=== PATIENT | male | born 1945 | race Caucasian/White ===

== ENCOUNTER → 2017-01-31 | Outpatient (REF) | payer MEDICARE | LOC: M LAB REF 13:51 | PROVIDERS: ATTEND Internal Medicine Medical Oncology | DX: E83.119 Hemochromatosis, unspecified (principal) ==

== ENCOUNTER → 2017-04-18 | Outpatient (REF) | payer MEDICARE ==
[2017-04-18 13:50] LABS: PERCENT SATURATION 69.5 % (19.7-50.0)
== END ==
LOC: M LAB REF 12:50
PROVIDERS: ATTEND Internal Medicine Medical Oncology
DX: E83.119 Hemochromatosis, unspecified (principal)

== ENCOUNTER → 2017-08-08 | Outpatient (CLI) | payer MEDICARE | LOC: M RAD 07:25 | DX: R16.1 Splenomegaly, not elsewhere classified (principal); D18.03 Hemangioma of intra-abdominal structures; N26.1 Atrophy of kidney (terminal); N28.1 Cyst of kidney, acquired; I31.3 Pericardial effusion (noninflammatory) | CPT/HCPCS: 76700 ==

== ENCOUNTER → 2017-08-15 | Outpatient (REF) | payer MEDICARE ==
[2017-08-15 14:57] LABS: FERRITIN 380 NG/ML (26-388); IRON (FE) 198 UG/DL (65-175); PERCENT SATURATION 93.4 % (19.7-50.0); TOTAL IRON BINDING CAPACITY 212 UG/DL (250-450)
== END ==
LOC: M LAB REF 13:31
DX: E83.119 Hemochromatosis, unspecified (principal)
CPT/HCPCS: 83550

== ENCOUNTER → 2017-11-14 | Outpatient (REF) | payer MEDICARE ==
[2017-11-14 15:07] LABS: FERRITIN 268 NG/ML (26-388); IRON (FE) 137 UG/DL (65-175); PERCENT SATURATION 65.9 % (19.7-50.0); TOTAL IRON BINDING CAPACITY 208 UG/DL (250-450)
== END ==
LOC: M ONCM 10:35
DX: E83.119 Hemochromatosis, unspecified (principal)
CPT/HCPCS: 83550

== ENCOUNTER → 2018-02-27 | Outpatient (REF) | payer MEDICARE ==
[2018-02-27 14:23] LABS: FERRITIN 222 NG/ML (26-388); IRON (FE) 90 UG/DL (65-175); PERCENT SATURATION 54.9 % (19.7-50.0); TOTAL IRON BINDING CAPACITY 164 UG/DL (250-450)
== END ==
LOC: M LAB REF 13:30
DX: E83.118 Other hemochromatosis (principal); D75.81 Myelofibrosis
CPT/HCPCS: 83550

== ENCOUNTER → 2019-01-29 | Outpatient (CLI) | payer MEDICARE ==
[~2019-01-29] MED LIST: AMLO5TAB6 PO; LEVO25TA34 PO; LISI-542 PO; ULOR80TA PO
[2019-01-29 16:24] LABS: HEMATOCRIT 27.7 % (42.0-52.0); HEMOGLOBIN 8.5 g/dl (13.5-17.5); MEAN CORPUSCULAR HEMOGLOBIN 27.6 pg (27.0-33.0); MEAN CORPUSCULAR HGB CONC 30.7 g/dl (32.0-36.5); MEAN CORPUSCULAR VOLUME 89.9 fl (80.0-96.0); PLATELET COUNT, AUTOMATED 243 10^3/uL (150-450); RED BLOOD COUNT 3.08 10^6/uL (4.30-6.10); WHITE BLOOD COUNT 2.6 10^3/uL (4.0-10.0)
[2019-01-29 16:42] LABS: ALBUMIN 3.6 GM/DL (3.2-5.2); BILIRUBIN,TOTAL 0.7 MG/DL (0.2-1.0); CALCIUM LEVEL 8.5 MG/DL (8.8-10.2); CREATININE FOR GFR 1.61 MG/DL (0.70-1.30); GLOMERULAR FILTRATION RATE 44.9 (>42); POTASSIUM SERUM 4.8 MEQ/L (3.5-5.1); TOTAL PROTEIN 6.3 GM/DL (6.4-8.2)
[2019-01-29 17:59] LABS: ANISOCYTOSIS 2+; ATYPICAL LYMPH 13 % (0-5); BASOPHILS 2 % (0-1); EOSINOPHILS 1 % (0-3); LYMPHOCYTES 15 % (19-44); METAMYELOCYTES 12 % (0-0); MONOCYTES 1 % (0-5); MYELOCYTES 13 % (0-0); NEUTROPHILS 30 % (28-66); TEAR DROP CELLS 3+
[2019-01-29 18:00] LABS: OVALOCYTES 1+; PLATELET ESTIMATE NORMAL (NORMAL); POLYCHROMASIA 1+
== END ==
LOC: M LAB 14:45
PROVIDERS: ATTEND Internal Medicine Hematology & Oncology
DX: Z13.0 Encounter for screening for diseases of the blood and blood-forming organs and certain disorders involving the immune mechanism (principal)

== ENCOUNTER → 2019-02-12 | Outpatient (CLI) | payer MEDICARE ==
[~2019-02-12] MED LIST changes: +B-12100011 SL; +LEVO112T2 PO
--- NOTE | 2019-02-12 09:15 | REP ---
Clinical: Splenomegaly. Comparison: 07/31/2017 Technique: Real time louis scale ultrasound examination using curved array transducer. Findings: The spleen is enlarged and measures 22 x 12 x 20.6 cm ([id number]). Single 1.9 cm hyperechoic focus is nonspecific but similar to prior examination and likely represent small benign hemangioma. Small amount of perisplenic fluid noted. The left kidney is normal in reniform shape with increased central sinus fat, cortical thinning, and 1.1 cm upper pole simple cyst. No hydronephrosis. Left kidney measures 10.8 x 4.7 x 4.0 cm. Impression: 1. Splenomegaly with small presumed benign hemangioma. 2. Small amount of perisplenic fluid nonspecific. 3. Chronic age-related changes the left kidney. Electronically Signed by Mickey Medina MD 02/12/2019 09:07 A
== END ==
LOC: M RAD 08:06
PROVIDERS: ATTEND Internal Medicine Hematology & Oncology
DX: E83.119 Hemochromatosis, unspecified (principal); D75.81 Myelofibrosis; R16.1 Splenomegaly, not elsewhere classified; N28.1 Cyst of kidney, acquired

== ENCOUNTER → 2019-07-09 | Outpatient (REF) | payer MEDICARE ==
[~2019-07-09] MED LIST changes: +VITA100054 PO
[2019-07-09 13:56] LABS: PERCENT SATURATION 60.5 % (19.7-50.0)
== END ==
LOC: M LAB REF 12:49
PROVIDERS: ATTEND Nurse Practitioner Family
DX: D50.9 Iron deficiency anemia, unspecified (principal)

== ENCOUNTER → 2019-10-14 | Outpatient (CLI) | payer MEDICARE ==
[2019-10-14 17:16] LABS: HEMATOCRIT 31.1 % (42.0-52.0); HEMOGLOBIN 9.5 g/dl (13.5-17.5); MEAN CORPUSCULAR HEMOGLOBIN 27.9 pg (27.0-33.0); MEAN CORPUSCULAR HGB CONC 30.5 g/dl (32.0-36.5); MEAN CORPUSCULAR VOLUME 91.2 fl (80.0-96.0); PLATELET COUNT, AUTOMATED 308 10^3/uL (150-450); RED BLOOD COUNT 3.41 10^6/uL (4.30-6.10); WHITE BLOOD COUNT 2.7 10^3/uL (4.0-10.0)
== END ==
LOC: M LRY 10:47
PROVIDERS: ATTEND Internal Medicine Hematology & Oncology
DX: D46.1 Refractory anemia with ring sideroblasts (principal)

== ENCOUNTER → 2019-10-21 | Outpatient (CLI) | payer MEDICARE ==
[2019-10-21 17:11] LABS: HEMATOCRIT 34.4 % (42.0-52.0); HEMOGLOBIN 10.3 g/dl (13.5-17.5); MEAN CORPUSCULAR HEMOGLOBIN 27.9 pg (27.0-33.0); MEAN CORPUSCULAR HGB CONC 29.9 g/dl (32.0-36.5); MEAN CORPUSCULAR VOLUME 93.2 fl (80.0-96.0); PLATELET COUNT, AUTOMATED 313 10^3/uL (150-450); RED BLOOD COUNT 3.69 10^6/uL (4.30-6.10)
== END ==
LOC: M LRY 11:15
PROVIDERS: ATTEND Internal Medicine Hematology & Oncology
DX: D46.9 Myelodysplastic syndrome, unspecified (principal)

== ENCOUNTER → 2019-10-28 | Outpatient (CLI) | payer MEDICARE ==
[2019-10-28 16:29] LABS: CREATININE FOR GFR 2.22 MG/DL (0.70-1.30); GLOMERULAR FILTRATION RATE 30.9 (>42); PERCENT SATURATION 65.9 % (19.7-50.0); POTASSIUM SERUM 4.9 MEQ/L (3.5-5.1)
[2019-10-28 16:33] LABS: BASO % 1.6 % (0.0-1.0); EOS % 0.4 % (0.0-3.0); HEMATOCRIT 33.4 % (42.0-52.0); LYMPH # 0.6 10^3/uL (1.5-5.0); LYMPH % 21.8 % (24.0-44.0); MEAN CORPUSCULAR HEMOGLOBIN 27.9 pg (27.0-33.0); MEAN CORPUSCULAR HGB CONC 29.9 g/dl (32.0-36.5); MEAN CORPUSCULAR VOLUME 93.3 fl (80.0-96.0); MONO # 0.5 10^3/uL (0.0-0.8); MONO % 20.2 % (0.0-5.0); NEUTROPHILS % 38.1 % (36.0-66.0); PLATELET COUNT, AUTOMATED 304 10^3/uL (150-450); RED BLOOD COUNT 3.58 10^6/uL (4.30-6.10); WHITE BLOOD COUNT 2.6 10^3/uL (4.0-10.0)
== END ==
LOC: M LRY 10:49
PROVIDERS: ATTEND Internal Medicine Hematology & Oncology
DX: E83.119 Hemochromatosis, unspecified (principal)

== ENCOUNTER → 2019-11-12 | Outpatient (CLI) | payer MEDICARE ==
[2019-11-12 16:46] LABS: BASO # 0.1 10^3/uL (0.0-0.2); BASO % 1.1 % (0.0-1.0); HEMATOCRIT 36.9 % (42.0-52.0); HEMOGLOBIN 10.9 g/dl (13.5-17.5); LYMPH # 0.9 10^3/uL (1.5-5.0); LYMPH % 19.9 % (24.0-44.0); MEAN CORPUSCULAR HGB CONC 29.5 g/dl (32.0-36.5); MEAN CORPUSCULAR VOLUME 91.6 fl (80.0-96.0); MONO # 0.7 10^3/uL (0.0-0.8); MONO % 14.6 % (0.0-5.0); NEUTROPHILS % 42.4 % (36.0-66.0); PLATELET COUNT, AUTOMATED 294 10^3/uL (150-450); RED BLOOD COUNT 4.03 10^6/uL (4.30-6.10); WHITE BLOOD COUNT 4.7 10^3/uL (4.0-10.0)
[2019-11-12 17:06] LABS: PERCENT SATURATION 94.6 % (19.7-50.0)
== END ==
LOC: M LRY 13:12
PROVIDERS: ATTEND Internal Medicine Hematology & Oncology
DX: E83.110 Hereditary hemochromatosis (principal)

== ENCOUNTER → 2020-09-10 | Outpatient (CLI) | payer MEDICARE ==
[~2020-09-10] MED LIST changes: +AMLO1TAB24 PO; -AMLO5TAB6 PO; +D31000TA2 PO; -LISI-542 PO; +LISI-898 PO
--- NOTE | 2020-09-10 09:23 | REP ---
INDICATION: Hemochromatosis, ANEMIA. COMPARISON: None. TECHNIQUE: Multiple sequences are obtained in the axial and coronal planes. FINDINGS: The liver demonstrates significant diffuse low signal on T2 weighted images as well as on in phase images consistent with significant diffuse iron deposition. There is mild hepatomegaly, the liver length is 19.5 cm. No liver cyst or definite liver nodule is seen. The patient has had a prior cholecystectomy. There is not a significant biliary dilatation. The main portal vein is dilated up to about 16-17 mm. The splenic vein is dilated. The findings are compatible with portal hypertension. There is massive splenomegaly. The length of the spleen is 22 cm. There are 4 scattered hyperintense nodules seen on T2 weighted images within the spleen which may represent hemangiomas, maximum diameter is 1.4 cm. The adrenal glands and pancreas are unremarkable in appearance. There is no pancreatic duct dilatation. There is a 1.7 cm exophytic cyst of the mid right kidney. Left kidney is [id number] compressed by the massive splenomegaly. There is a 1.5 cm cyst in the or pole and a 1.3 cm cyst in the upper pole. There is no hydronephrosis bilaterally. There is a tiny amount of fluid surrounding the liver and spleen. IMPRESSION: Findings compatible with significant iron deposition throughout the liver. Mild hepatomegaly. Massive splenomegaly. Dilated portal vein and splenic vein compatible with portal hypertension. <Electronically signed by Robert Romero > 09/10/20 [id number]
== END ==
LOC: M RAD 07:35
PROVIDERS: ATTEND Internal Medicine Medical Oncology
DX: D64.9 Anemia, unspecified (principal); R16.0 Hepatomegaly, not elsewhere classified; R16.1 Splenomegaly, not elsewhere classified

== ENCOUNTER → 2021-03-07 | Outpatient (CLI) | payer MEDICARE ==
[~2021-03-07] MED LIST changes: +FAMO40TA3 PO; +JAKA5TAB PO; +PANT40TA29 PO
--- NOTE | 2021-03-07 10:43 | REP ---
INDICATION: SPLENOMAGALY. COMPARISON: Comparison prior sonography February 12, 2019. Comparison MRI study September 10, 2020. TECHNIQUE: Left upper quadrant abdominal sonography. FINDINGS: The spleen is again noted to be markedly enlarged measuring 24 x 18 x 9 cm. There are several echogenic foci within the spleen consistent with hemangiomas. Only 1 of these was visualized previously. It is unchanged in size. 1.3 cm. No other focal splenic lesion is seen. There is a trace amount of fluid in the left upper quadrant of the abdomen. The left kidney measures 8.2 x 3.9 x 4.3 cm. There is a 1.2 cm cyst in the left kidney. There is a tiny echogenic focus at the capsule of the left mid kidney which may be a small scar. No mass lesion or hydronephrosis seen. IMPRESSION: Marked splenomegaly again noted. There are several hyperechoic nodules within the spleen consistent with hemangiomas. The largest of these is 1.3 cm. <Electronically signed by Ayan Miranda > 03/07/21 [id number]
== END ==
LOC: M RAD 09:46
PROVIDERS: ATTEND Internal Medicine Medical Oncology
DX: R16.1 Splenomegaly, not elsewhere classified (principal)

== ENCOUNTER → 2021-06-01 | Outpatient (CLI) | payer MEDICARE ==
[2021-06-01] VITALS (7 sets, daily range): BP systolic 137–163; BP diastolic 61–88
[~2021-06-01] VITALS: Ht 177.8 cm; Wt 63.6 kg
[~2021-06-01] MED LIST changes: +ACETAMINOPHEN TAB 650MG DOSE (2X325MG) PO ONE; +diphenhydrAMINE 25MG CAP PO ONE
== END ==
LOC: M INFU 11:19
PROVIDERS: ATTEND Internal Medicine Medical Oncology
DX: D64.9 Anemia, unspecified (principal)
CPT/HCPCS: 36415; 36430; 85025; 86850; 86900; 86901; 86920; J0885; P9016

== ENCOUNTER 2021-09-28 11:59 | Outpatient (CLI) | payer MEDICARE ==
[2021-09-28] VITALS (7 sets, daily range): BP systolic 115–183; BP diastolic 55–79
[~2021-09-28 11:59] MED LIST changes: -ACETAMINOPHEN TAB 650MG DOSE (2X325MG) PO ONE; +ACETAMINOPHEN TAB 650MG DOSE (2X325MG) PO SCH; +AZIT-10 PO; -D31000TA2 PO; -LISI-898 PO; +LISI5TAB11 PO; +VITA100093 PO; -diphenhydrAMINE 25MG CAP PO ONE; +diphenhydrAMINE 25MG CAP PO SCH
== END 2021-09-28 16:25 | disposition home or self-care (01) ==
LOC: M INFU 11:59
PROVIDERS: ATTEND Internal Medicine Medical Oncology
DX: D64.9 Anemia, unspecified (principal); D64.1 Secondary sideroblastic anemia due to disease; D75.81 Myelofibrosis; N18.4 Chronic kidney disease, stage 4 (severe)
CPT/HCPCS: 36415; 36430; 85025; 86850; 86900; 86901; 86920; J0885; P9016

== ENCOUNTER 2022-04-21 10:00 | Outpatient (CLI) | payer MEDICARE ==
[~2022-04-21] VITALS: Ht 177.8 cm; Wt 64.0 kg
[2022-04-21] MEDS ORDERED: ACETAMINOPHEN TAB 650MG DOSE (2X325MG) PO SCH (10:10)
[2022-04-21] MEDS ORDERED: diphenhydrAMINE 25MG CAP PO SCH (10:10)
[2022-04-21 10:33] VITALS: BP 160/80
[2022-04-21 10:40] VITALS: BP 161/76
[2022-04-21 12:17] VITALS: BP 170/82
== END 2022-04-21 12:15 | disposition home or self-care (01) ==
LOC: M INFU 10:00
PROVIDERS: ATTEND Internal Medicine Medical Oncology
DX: D64.9 Anemia, unspecified (principal)
CPT/HCPCS: 36430; P9016

== ENCOUNTER 2022-07-13 09:09 | Outpatient (CLI) | payer MEDICARE ==
[~2022-07-13] VITALS: Ht 177.8 cm; Wt 64.0 kg
[~2022-07-13 09:09] MED LIST changes: -ACETAMINOPHEN TAB 650MG DOSE (2X325MG) PO SCH
[2022-07-13 09:28] VITALS: BP 141/64
[2022-07-13 09:55] VITALS: BP 150/65
[2022-07-13 11:00] VITALS: BP 141/68
[2022-07-13 11:16] VITALS: BP 151/74
== END 2022-07-13 11:15 ==
LOC: M INFU 09:09
PROVIDERS: ATTEND Internal Medicine Medical Oncology
DX: D64.9 Anemia, unspecified (principal)
CPT/HCPCS: 36430; P9016

== ENCOUNTER → 2023-07-21 | Outpatient (CLI) | payer MEDICARE ==
[~2023-07-21] MED LIST changes: -diphenhydrAMINE 25MG CAP PO SCH
== END ==
LOC: M RAD 12:07
PROVIDERS: ATTEND Nurse Practitioner Adult Health
DX: M79.671 Pain in right foot (principal); M79.672 Pain in left foot

== ENCOUNTER → 2023-12-14 | Outpatient (REF) | payer MEDICARE | LOC: M SFHCDERM 08:00 | PROVIDERS: ATTEND Nurse Practitioner Family | DX: B07.9 Viral wart, unspecified (principal) ==

== ENCOUNTER → 2024-01-18 | Outpatient (CLI) | payer MEDICARE | LOC: M RAD 07:31 | PROVIDERS: ATTEND Internal Medicine Medical Oncology | DX: R16.1 Splenomegaly, not elsewhere classified (principal); D64.9 Anemia, unspecified ==

== ENCOUNTER → 2024-08-28 | Outpatient (CLI) | payer MEDICARE | LOC: M RAD 08:03 | PROVIDERS: ATTEND Internal Medicine Medical Oncology | DX: R16.1 Splenomegaly, not elsewhere classified (principal); D75.81 Myelofibrosis; N28.89 Other specified disorders of kidney and ureter ==

== ENCOUNTER → 2025-01-07 | Outpatient (REF) | payer MEDICARE ==
[2025-01-07 11:43] LABS: BASO # 0.2 10^3/uL (0.0-0.2); BASO % 1.7 % (0.0-1.0); EOS # 0.0 10^3/uL (0.0-0.5); EOS % 0.1 % (0.0-3.0); LYMPH # 1.1 10^3/uL (1.5-5.0); LYMPH % 13.0 % (24.0-44.0); MONO # 1.9 10^3/uL (0.0-0.8); MONO % 21.5 % (2.0-8.0); NEUTROPHILS # 3.5 10^3/uL (1.5-8.5); NEUTROPHILS % 40.5 % (36.0-66.0); PLATELET COUNT, AUTOMATED 181 10^3/uL (150-450)
[2025-01-07 11:57] LABS: IRON (FE) 136.0 UG/DL (65-175); PERCENT SATURATION 81.0 % (19.7-50.0)
[2025-01-07 11:59] LABS: FREE T4 1.33 NG/DL (0.89-1.76)
[2025-01-07 12:02] LABS: ALT/SGPT 61.0 U/L (7.0-40); AST/SGOT 52.0 U/L (<34); CALCIUM LEVEL 8.9 MG/DL (8.3-10.6); CARBON DIOXIDE LEVEL 21.0 MMOL/L (20-31); CHLORIDE LEVEL 109.0 MMOL/L (98-107); CHOLESTEROL LEVEL 167.0 MG/DL (<200); CHOLESTEROL RISK RATIO 5.0 (<5); CREATININE FOR GFR 2.2 MG/DL (0.70-1.30); GLOMERULAR FILTRATION RATE 29.5 (>35); LDL CHOLESTEROL 87.4 MG/DL (<100); NON-HDL-C 133.6 MG/DL; POTASSIUM SERUM 4.1 MMOL/L (3.5-5.1); SODIUM LEVEL 143.0 MMOL/L (136-145); TRIGLYCERIDES LEVEL 231.0 MG/DL (<150)
== END ==
LOC: M LAB REF 11:10
DX: M10.9 Gout, unspecified (principal); E78.5 Hyperlipidemia, unspecified; Z79.899 Other long term (current) drug therapy; D50.9 Iron deficiency anemia, unspecified; K21.9 Gastro-esophageal reflux disease without esophagitis; N18.4 Chronic kidney disease, stage 4 (severe); E03.9 Hypothyroidism, unspecified

== ENCOUNTER 2025-03-30 11:17 | Inpatient (IN) | payer MEDICARE ==
[~2025-03-30] VITALS: Ht 167.6 cm; Wt 65.2 kg
[2025-03-30] VITALS (20 sets, daily range): BP systolic 135–161; BP diastolic 60–84; TEMP 97–98.3; O2SAT 95–98
[2025-03-30 12:06] LABS: BASO # 0.2 10^3/uL (0.0-0.2); BASO % 1.4 % (0.0-1.0); EOS # 0.0 10^3/uL (0.0-0.5); EOS % 0.2 % (0.0-3.0); LYMPH # 1.3 10^3/uL (1.5-5.0); LYMPH % 12.1 % (24.0-44.0); MONO % 24.1 % (2.0-8.0); NEUTROPHILS # 4.3 10^3/uL (1.5-8.5); NEUTROPHILS % 39.6 % (36.0-66.0); PLATELET COUNT, AUTOMATED 133 10^3/uL (150-450)
[2025-03-30 12:11] LABS: MONO # 2.6 10^3/uL (0.0-0.8)
[2025-03-30 12:23] LABS: INR 0.98
[2025-03-30] MEDS ORDERED: MECL-136 (12:32)
[2025-03-30] MEDS ORDERED: AMLO2.5T3 PO (12:32)
[2025-03-30] MEDS ORDERED: RENATAB5 PO (12:32)
[2025-03-30] MEDS: niCARdipine IV 40 MG in IV 1 EA IV SCH ×3 (12:51→19:40)
[2025-03-30] MEDS: TENECTEPLASE 50 MG/10 ML VIAL IVP ONE (12:58)
[2025-03-30 13:44] LABS: ALT/SGPT 53.0 U/L (7.0-40); AST/SGOT 36.0 U/L (<34); CALCIUM LEVEL 9.0 MG/DL (8.3-10.6); CARBON DIOXIDE LEVEL 25.0 MMOL/L (20-31); CHLORIDE LEVEL 109.0 MMOL/L (98-107); CREATININE FOR GFR 2.04 MG/DL (0.70-1.30); GLOMERULAR FILTRATION RATE 32.3 (>35); POTASSIUM SERUM 4.3 MMOL/L (3.5-5.1); SODIUM LEVEL 145.0 MMOL/L (136-145)
[2025-03-30] MEDS: SODIUM CHLORIDE 0.9% INJ 10 ML SYR IV ONE ×2 (14:00)
[2025-03-30] MEDS ORDERED: ASPI81TA26 PO (14:26)
[2025-03-30] MEDS ORDERED: LEVO125T4 PO (14:26)
[2025-03-30] MEDS ORDERED: PANT20TA6 PO (14:26)
[2025-03-30] MEDS ORDERED: LISI10TA22 PO (14:26)
[2025-03-30] MEDS ORDERED: CALC1CAP31 PO (14:26)
[2025-03-30] MEDS ORDERED: HOME MED LIST COMPLETE! XX SCH (14:30)
[2025-03-30] MEDS: ATORVASTATIN 20 MG TAB PO SCH (18:20)
[2025-03-31] VITALS (15 sets, daily range): BP systolic 121–163; BP diastolic 62–88; TEMP 97.2–98.8; O2SAT 93–97
[2025-03-31 05:21] LABS: PLATELET COUNT, AUTOMATED 121 10^3/uL (150-450)
[2025-03-31 05:40] LABS: ALT/SGPT 49.0 U/L (7.0-40); AST/SGOT 39.0 U/L (<34); CALCIUM LEVEL 8.8 MG/DL (8.3-10.6); CARBON DIOXIDE LEVEL 24.0 MMOL/L (20-31); CHLORIDE LEVEL 109.0 MMOL/L (98-107); CREATININE FOR GFR 1.95 MG/DL (0.70-1.30); GLOMERULAR FILTRATION RATE 34.1 (>35); POTASSIUM SERUM 4.2 MMOL/L (3.5-5.1); SODIUM LEVEL 145.0 MMOL/L (136-145)
[2025-03-31] MEDS: PANTOPRAZOLE 20 MG TAB PO SCH (10:09)
[2025-03-31 10:51] LABS: CHOLESTEROL LEVEL 210.0 MG/DL (<200); CHOLESTEROL RISK RATIO 5.66 (<5); LDL CHOLESTEROL 121.5 MG/DL (<100); NON-HDL-C 172.9 MG/DL; TRIGLYCERIDES LEVEL 257.0 MG/DL (<150)
[2025-03-31 11:15] LABS: ESTIMATED AVERAGE GLUCOSE 97.0 MG/DL (60-110)
[2025-03-31] MEDS: LEVOTHYROXINE 125 MCG TABLET (0.125 MG) PO SCH (11:20)
[2025-03-31] MEDS: CLOPIDOGREL 75 MG TAB PO SCH (17:17)
[2025-03-31] MEDS: ASPIRIN 81 MG ENTERIC TABLET PO SCH (17:17)
[2025-03-31] MEDS: amLODIPine 5 MG TAB PO SCH (17:19)
[2025-03-31] MEDS: HEPARIN SOD 5000 UNITS/ML 1 ML VIAL/SYRINGE SQ SCH (20:39)
[2025-03-31] MEDS: JAKAFI 5 MG PO SCH (20:39)
[2025-04-01] VITALS: BP 157/74; TEMP 98.7; O2SAT 96
[2025-04-01 04:00] VITALS: BP 173/79; TEMP 98.3; O2SAT 97
[2025-04-01 04:42] LABS: PLATELET COUNT, AUTOMATED 112 10^3/uL (150-450)
[2025-04-01 05:00] LABS: ALT/SGPT 45.0 U/L (7.0-40); AST/SGOT 34.0 U/L (<34); CALCIUM LEVEL 8.6 MG/DL (8.3-10.6); CARBON DIOXIDE LEVEL 23.0 MMOL/L (20-31); CHLORIDE LEVEL 107.0 MMOL/L (98-107); CREATININE FOR GFR 2.25 MG/DL (0.70-1.30); GLOMERULAR FILTRATION RATE 28.8 (>35); POTASSIUM SERUM 4.3 MMOL/L (3.5-5.1); SODIUM LEVEL 144.0 MMOL/L (136-145)
[2025-04-01 08:00] VITALS: BP 160/70; TEMP 98.6; O2SAT 97
[2025-04-01] MEDS: FEBUXOSTAT 40 MG TABLET PO SCH (08:44)
[2025-04-01 12:00] VITALS: BP 161/77; TEMP 98.9; O2SAT 99
[2025-04-01 16:00] VITALS: BP 168/80; TEMP 98.3; O2SAT 93
[2025-04-01] MEDS: ACETAMINOPHEN 325 MG TAB PO PRN (17:14)
[2025-04-01 20:00] VITALS: BP 144/69; TEMP 99.1; O2SAT 98
[2025-04-02] VITALS (7 sets, daily range): BP systolic 130–174; BP diastolic 64–80; TEMP 98.5–99.3; O2SAT 95–99
[2025-04-02 04:41] LABS: PLATELET COUNT, AUTOMATED 107 10^3/uL (150-450)
[2025-04-02 05:03] LABS: ALT/SGPT 44.0 U/L (7.0-40); AST/SGOT 30.0 U/L (<34); CALCIUM LEVEL 8.6 MG/DL (8.3-10.6); CARBON DIOXIDE LEVEL 22.0 MMOL/L (20-31); CHLORIDE LEVEL 108.0 MMOL/L (98-107); CREATININE FOR GFR 2.41 MG/DL (0.70-1.30); GLOMERULAR FILTRATION RATE 26.5 (>35); POTASSIUM SERUM 4.1 MMOL/L (3.5-5.1); SODIUM LEVEL 143.0 MMOL/L (136-145)
[2025-04-02] MEDS: NS 0.45% 1,000 ML IV SCH (11:55)
[2025-04-02 14:02] LABS: APPEARANCE, URINE CLEAR (CLEAR); BACTERIA, URINE AUTO 1+ (NEGATIVE); BILIRUBIN, URINE AUTO NEGATIVE (NEGATIVE); BLOOD, URINE BLOOD 3+ (NEGATIVE); GLUCOSE, URINE (UA) AUTO NEGATIVE (NEGATIVE); KETONE, URINE AUTO NEGATIVE (NEGATIVE); LEUKOCYTE ESTERASE, URINE AUTO TRACE (NEGATIVE); MUCUS, URINE SMALL (NEGATIVE); NITRITE, URINE AUTO NEGATIVE (NEGATIVE); PROTEIN, URINE AUTO 2+ mg/dL (NEGATIVE); RBC, URINE AUTO 92 /HPF (0-3); SPECIFIC GRAVITY URINE AUTO 1.013 (1.002-1.035); SQUAMOUS EPITHELIAL CELL UR AU 0 /HPF (0-6); UROBILINOGEN, URINE AUTO 0.2 mg/dL (0.0-2.0); WBC, URINE AUTO 8 /HPF (0-3)
[2025-04-03 03:13] VITALS: BP 132/90; TEMP 98.3; O2SAT 96
[2025-04-03 05:48] LABS: PLATELET COUNT, AUTOMATED 110 10^3/uL (150-450)
[2025-04-03 06:11] LABS: IRON (FE) < 5 UG/DL (65-175); PERCENT SATURATION 3.4 % (19.7-50.0)
[2025-04-03 06:16] LABS: ALT/SGPT 35 U/L (7.0-40); AST/SGOT 37 U/L (<34); CALCIUM LEVEL 8.5 MG/DL (8.3-10.6); CARBON DIOXIDE LEVEL 21 MMOL/L (20-31); CHLORIDE LEVEL 105 MMOL/L (98-107); CREATININE FOR GFR 2.07 MG/DL (0.70-1.30); GLOMERULAR FILTRATION RATE 31.8 (>35); POTASSIUM SERUM 4.6 MMOL/L (3.5-5.1); SODIUM LEVEL 138 MMOL/L (136-145)
[2025-04-03 07:28] VITALS: BP 138/81; TEMP 98.5; O2SAT 95
[2025-04-03] MEDS ORDERED: IRON SUCROSE 100 MG/5 ML VIAL IV SCH (07:55)
[2025-04-03] MEDS: IRON SUCROSE 300 MG in NS 250 ML OVER 90 MIN. IV ONE (10:08)
[2025-04-03 12:02] VITALS: BP 162/67; TEMP 98; O2SAT 96
[2025-04-03] MEDS: PREGABALIN 50 MG CAP PO SCH (13:03)
[2025-04-03 16:12] VITALS: BP 142/68; TEMP 98; O2SAT 97
[2025-04-03 20:05] VITALS: BP 146/65; TEMP 97.7; O2SAT 95
[2025-04-03] MEDS ORDERED: PREGABALIN 75 MG CAP PO SCH (21:00)
[2025-04-03 23:41] VITALS: BP 174/82; TEMP 98.9; O2SAT 95
[2025-04-04] VITALS (8 sets, daily range): BP systolic 124–166; BP diastolic 60–76; TEMP 97.2–100.5; O2SAT 93–97
[2025-04-04 06:35] LABS: PLATELET COUNT, AUTOMATED 91 10^3/uL (150-450)
[2025-04-04 06:36] LABS: ALT/SGPT 25.0 U/L (7.0-40); AST/SGOT 22.0 U/L (<34); CALCIUM LEVEL 8.1 MG/DL (8.3-10.6); CARBON DIOXIDE LEVEL 20.0 MMOL/L (20-31); CHLORIDE LEVEL 103.0 MMOL/L (98-107); CREATININE FOR GFR 2.2 MG/DL (0.70-1.30); GLOMERULAR FILTRATION RATE 29.5 (>35); POTASSIUM SERUM 3.9 MMOL/L (3.5-5.1); SODIUM LEVEL 135.0 MMOL/L (136-145)
[2025-04-04] MEDS ORDERED: LIDOCAINE 5% PATCH TD ONE (10:50)
[2025-04-04 10:51] LABS: MAGNESIUM LEVEL 1.4 MG/DL (1.8-2.4)
[2025-04-04] MEDS: ANALGESIC BALM CRM 3 OZ TOP SCH (12:14)
[2025-04-04] MEDS: LIDOCAINE 5% PATCH TD SCH (12:15)
[2025-04-04] MEDS ORDERED: MAGNESIUM OXIDE 400 MG TAB PO ONE (14:15)
[2025-04-04] MEDS: MAG SULF 1GM/100ML (MAG RUN) 1 GM in IV 1 EA IV SCH (14:59)
[2025-04-04] MEDS: BISACODYL 10 MG SUPP PR ONE (14:59)
[2025-04-04] MEDS: MAGNESIUM OXIDE 400 MG TAB PO SCH (15:00)
[2025-04-04] MEDS: MAGNESIUM CITRATE 300 ML BTL PO ONE (15:01)
[2025-04-04] MEDS: BISACODYL 10 MG SUPP PR SCH (21:00)
[2025-04-04] MEDS: SENNOSIDES/DOCUSATE SODIUM 8.6 MG/50MG TAB PO SCH (21:00)
[2025-04-05] VITALS (8 sets, daily range): BP systolic 118–155; BP diastolic 52–70; TEMP 97.3–100; O2SAT 90–97
[2025-04-05 06:28] LABS: PLATELET COUNT, AUTOMATED 97 10^3/uL (150-450)
[2025-04-05 06:46] LABS: CALCIUM LEVEL 7.9 MG/DL (8.3-10.6); CARBON DIOXIDE LEVEL 22.0 MMOL/L (20-31); CHLORIDE LEVEL 103.0 MMOL/L (98-107); CREATININE FOR GFR 2.5 MG/DL (0.70-1.30); GLOMERULAR FILTRATION RATE 25.3 (>35); MAGNESIUM LEVEL 2.1 MG/DL (1.8-2.4); POTASSIUM SERUM 4.0 MMOL/L (3.5-5.1); SODIUM LEVEL 137.0 MMOL/L (136-145)
[2025-04-05] MEDS ORDERED: BISACODYL 10 MG SUPP PR PRN (07:30)
[2025-04-05] MEDS: predniSONE 20 MG TAB PO SCH (10:08)
[2025-04-06] VITALS (12 sets, daily range): BP systolic 122–149; BP diastolic 59–72; TEMP 96.8–97.8; O2SAT 54–97
[2025-04-06 06:01] LABS: PLATELET COUNT, AUTOMATED 86 10^3/uL (150-450)
[2025-04-06 06:16] LABS: CALCIUM LEVEL 8.0 MG/DL (8.3-10.6); CARBON DIOXIDE LEVEL 21.0 MMOL/L (20-31); CHLORIDE LEVEL 104.0 MMOL/L (98-107); CREATININE FOR GFR 2.56 MG/DL (0.70-1.30); GLOMERULAR FILTRATION RATE 24.6 (>35); MAGNESIUM LEVEL 2.3 MG/DL (1.8-2.4); POTASSIUM SERUM 4.7 MMOL/L (3.5-5.1); SODIUM LEVEL 136.0 MMOL/L (136-145)
[2025-04-06] MEDS: CALCITRIOL 0.25 MCG CAP (S0169) PO SCH (10:57)
[2025-04-06 16:43] LABS: APPEARANCE, URINE CLOUDY (CLEAR); BACTERIA, URINE AUTO 2+ (NEGATIVE); BILIRUBIN, URINE AUTO NEGATIVE (NEGATIVE); BLOOD, URINE BLOOD 2+ (NEGATIVE); GLUCOSE, URINE (UA) AUTO NEGATIVE (NEGATIVE); KETONE, URINE AUTO NEGATIVE (NEGATIVE); LEUKOCYTE ESTERASE, URINE AUTO 3+ (NEGATIVE); NITRITE, URINE AUTO NEGATIVE (NEGATIVE); PROTEIN, URINE AUTO 1+ mg/dL (NEGATIVE); RBC, URINE AUTO 14 /HPF (0-3); SPECIFIC GRAVITY URINE AUTO 1.004 (1.002-1.035); SQUAMOUS EPITHELIAL CELL UR AU 0 /HPF (0-6); UROBILINOGEN, URINE AUTO 0.2 mg/dL (0.0-2.0); WBC, URINE AUTO TNTC /HPF (0-3)
[2025-04-06] MEDS: CEFDINIR 300 MG CAP PO SCH (20:10)
[2025-04-07 04:08] VITALS: BP 140/63; TEMP 97; O2SAT 93
[2025-04-07 05:57] LABS: PLATELET COUNT, AUTOMATED 112 10^3/uL (150-450)
[2025-04-07 06:26] LABS: CALCIUM LEVEL 9.2 MG/DL (8.3-10.6); CARBON DIOXIDE LEVEL 19.0 MMOL/L (20-31); CHLORIDE LEVEL 105.0 MMOL/L (98-107); CREATININE FOR GFR 2.11 MG/DL (0.70-1.30); GLOMERULAR FILTRATION RATE 31.1 (>35); MAGNESIUM LEVEL 2.0 MG/DL (1.8-2.4); POTASSIUM SERUM 4.5 MMOL/L (3.5-5.1); SODIUM LEVEL 136.0 MMOL/L (136-145)
[2025-04-07 08:31] VITALS: BP 132/62; TEMP 97; O2SAT 96
[2025-04-07 09:18] VITALS: BP 132/62
[2025-04-07] MEDS ORDERED: CARV3.12 PO (11:22)
[2025-04-07] MEDS ORDERED: CEFD300CAP PO (11:22)
[2025-04-07] MEDS ORDERED: ATOR80TA59 PO (11:22)
[2025-04-07] MEDS ORDERED: PRED20TA PO (11:23)
[2025-04-07] MEDS ORDERED: MAGN400T33 PO (11:23)
[2025-04-07] MEDS ORDERED: CLOP75TA2 PO (11:23)
[2025-04-07 12:00] VITALS: BP 138/69; TEMP 97.3; O2SAT 96
== END 2025-04-07 14:57 | DRG 62 ==
LOC: M ED 12:56 → M ED INP 14:16 → M ICU 18:04 → M PCU 04-02 23:34
PROVIDERS: ADMIT Internal Medicine Pulmonary Disease; ATTEND Student in an Organized Health Care Education/Training Program
PROC: 3E03317 Introduction of Other Thrombolytic into Peripheral Vein, Percutaneous Approach (ICD-10-PCS; principal; 2025-03-30)
PROC: B246ZZZ Ultrasonography of Right and Left Heart (ICD-10-PCS; 2025-03-31)
PROC: 30233N1 Transfusion of Nonautologous Red Blood Cells into Peripheral Vein, Percutaneous Approach (ICD-10-PCS; 2025-04-06)
DX: I63.512 Cerebral infarction due to unspecified occlusion or stenosis of left middle cerebral artery (principal); I16.1 Hypertensive emergency; D75.81 Myelofibrosis; N17.9 Acute kidney failure, unspecified; N39.0 Urinary tract infection, site not specified; M10.041 Idiopathic gout, right hand; M19.90 Unspecified osteoarthritis, unspecified site; N18.32 Chronic kidney disease, stage 3b; E78.5 Hyperlipidemia, unspecified; I12.9 Hypertensive chronic kidney disease with stage 1 through stage 4 chronic kidney disease, or unspecified chronic kidney disease; E03.9 Hypothyroidism, unspecified; I35.1 Nonrheumatic aortic (valve) insufficiency; G57.93 Unspecified mononeuropathy of bilateral lower limbs; K59.00 Constipation, unspecified; K21.9 Gastro-esophageal reflux disease without esophagitis; D63.1 Anemia in chronic kidney disease; R40.0 Somnolence; D50.9 Iron deficiency anemia, unspecified; E83.110 Hereditary hemochromatosis; Z90.49 Acquired absence of other specified parts of digestive tract; Z79.82 Long term (current) use of aspirin; Z79.890 Hormone replacement therapy; Z79.899 Other long term (current) drug therapy

== ENCOUNTER 2025-04-07 10:19 | Inpatient (IN) | payer MEDICARE ==
[~2025-04-07] VITALS: Ht 177.8 cm; Wt 66.0 kg
[~2025-04-07 10:19] MED LIST changes: +AMLO2.5T3 PO; +ASPI81TA26 PO; +CALC1CAP31 PO; +LEVO125T4 PO; +LISI10TA22 PO; +MECL-136; +PANT20TA6 PO; +RENATAB5 PO
[2025-04-07] MEDS ORDERED: CEFD300CAP PO (11:22)
[2025-04-07] MEDS ORDERED: CARV3.12 PO (11:22)
[2025-04-07] MEDS ORDERED: ATOR80TA59 PO (11:22)
[2025-04-07] MEDS ORDERED: PRED20TA PO (11:23)
[2025-04-07] MEDS ORDERED: MAGN400T33 PO (11:23)
[2025-04-07] MEDS ORDERED: CLOP75TA2 PO (11:23)
[2025-04-07 14:55] VITALS: BP 136/76; TEMP 97.1; O2SAT 94
[2025-04-07] MEDS ORDERED: MOM 30 ML SUSPENSION UDC PO PRN (16:05)
[2025-04-07] MEDS ORDERED: ACETAMINOPHEN 325 MG TAB PO PRN (16:05)
[2025-04-07] MEDS ORDERED: MAALOX 30 ML SUSP *UDC PO PRN (16:05)
[2025-04-07] MEDS: CEFDINIR 300 MG CAP PO SCH (18:40)
[2025-04-07 20:00] VITALS: BP 144/75; TEMP 97.3; O2SAT 94
[2025-04-07] MEDS: SENNOSIDES/DOCUSATE SODIUM 8.6 MG/50MG TAB PO SCH (20:56)
[2025-04-07] MEDS: PREGABALIN 50 MG CAP PO SCH (20:56)
[2025-04-07] MEDS: ATORVASTATIN 20 MG TAB PO SCH (20:57)
[2025-04-07] MEDS: DOCUSATE SODIUM 100 MG CAPSULE PO SCH (20:58)
[2025-04-07] MEDS: HEPARIN SOD 5000 UNITS/ML 1 ML VIAL/SYRINGE SC SCH (20:58)
[2025-04-08 04:00] VITALS: TEMP 97.4; O2SAT 99
[2025-04-08] MEDS: LEVOTHYROXINE 125 MCG TABLET (0.125 MG) PO SCH (05:36)
[2025-04-08 06:33] LABS: PLATELET COUNT, AUTOMATED 132 10^3/uL (150-450)
[2025-04-08 06:54] LABS: ALT/SGPT 44.0 U/L (7.0-40); AST/SGOT 44.0 U/L (<34); CALCIUM LEVEL 8.3 MG/DL (8.3-10.6); CARBON DIOXIDE LEVEL 22.0 MMOL/L (20-31); CHLORIDE LEVEL 111.0 MMOL/L (98-107); CREATININE FOR GFR 2.28 MG/DL (0.70-1.30); GLOMERULAR FILTRATION RATE 28.3 (>35); POTASSIUM SERUM 4.5 MMOL/L (3.5-5.1); SODIUM LEVEL 143.0 MMOL/L (136-145)
[2025-04-08 07:23] LABS: ATYPICAL LYMPH 14 % (0-5); BASOPHILS 2 % (0-1); BLAST CELLS 3 % (0-0); LYMPHOCYTES 15 % (16-44); METAMYELOCYTES 2 % (0-0); MONOCYTES 13 % (0-5); MYELOCYTES 3 % (0-0); NEUTROPHILS 46 % (28-66); PROMYELOCYTES 1 % (0-0)
[2025-04-08 07:24] LABS: PLATELET ESTIMATE DECREASED (NORMAL)
[2025-04-08] MEDS: CLOPIDOGREL 75 MG TAB PO SCH (09:22)
[2025-04-08] MEDS: predniSONE 20 MG TAB PO SCH (09:22)
[2025-04-08] MEDS: VITAMIN D 1,000 INTERNATIONAL UNITS TABLET PO SCH (09:22)
[2025-04-08] MEDS: FAMOTIDINE 20 MG TAB PO SCH (09:22)
[2025-04-08] MEDS: ASPIRIN 81 MG ENTERIC TABLET PO SCH (09:22)
[2025-04-08] MEDS: CALCITRIOL 0.25 MCG CAP (S0169) PO SCH (09:22)
[2025-04-08] MEDS: FEBUXOSTAT 40 MG TABLET PO SCH (09:22)
[2025-04-08] MEDS: MAGNESIUM OXIDE 400 MG TAB PO SCH (09:22)
[2025-04-08 12:00] VITALS: BP 163/70; TEMP 96.4; O2SAT 98
[2025-04-08] MEDS: CEFPODOXIME PROXETIL 200 MG TABLET PO SCH (18:43)
[2025-04-08 20:00] VITALS: BP 143/56; TEMP 97.2; O2SAT 95
[2025-04-09 04:00] VITALS: BP 138/58; TEMP 98.1; O2SAT 96
[2025-04-09] MEDS: APIXABAN 2.5 MG TAB PO SCH (07:48)
[2025-04-09 12:28] VITALS: BP 172/80; TEMP 97.4; O2SAT 97
[2025-04-09] MEDS ORDERED: traZODone 50 MG TAB PO PRN (17:05)
[2025-04-09 20:00] VITALS: BP 146/78; TEMP 97; O2SAT 98
[2025-04-10 04:00] VITALS: BP 154/74; TEMP 97.4; O2SAT 96
[2025-04-10 06:53] LABS: BASO # 0.2 10^3/uL (0.0-0.2); BASO % 0.7 % (0.0-1.0); EOS # 0.1 10^3/uL (0.0-0.5); EOS % 0.3 % (0.0-3.0); LYMPH # 1.7 10^3/uL (1.5-5.0); LYMPH % 6.9 % (24.0-44.0); MONO % 21.5 % (2.0-8.0); NEUTROPHILS # 9.8 10^3/uL (1.5-8.5); NEUTROPHILS % 40.9 % (36.0-66.0); PLATELET COUNT, AUTOMATED 160 10^3/uL (150-450)
[2025-04-10 06:56] LABS: MONO # 5.1 10^3/uL (0.0-0.8)
[2025-04-10 07:16] LABS: CALCIUM LEVEL 7.7 MG/DL (8.3-10.6); CARBON DIOXIDE LEVEL 21.0 MMOL/L (20-31); CHLORIDE LEVEL 108.0 MMOL/L (98-107); CREATININE FOR GFR 2.0 MG/DL (0.70-1.30); GLOMERULAR FILTRATION RATE 33.1 (>35); POTASSIUM SERUM 3.9 MMOL/L (3.5-5.1); SODIUM LEVEL 141.0 MMOL/L (136-145)
[2025-04-10 08:30] LABS: BASO # 0.1 10^3/uL (0.0-0.2); BASO % 0.5 % (0.0-1.0); EOS # 0.1 10^3/uL (0.0-0.5); EOS % 0.3 % (0.0-3.0); LYMPH # 3.1 10^3/uL (1.5-5.0); LYMPH % 10.6 % (24.0-44.0); MONO % 17.9 % (2.0-8.0); NEUTROPHILS # 11.8 10^3/uL (1.5-8.5); NEUTROPHILS % 39.7 % (36.0-66.0); PLATELET COUNT, AUTOMATED 216 10^3/uL (150-450)
[2025-04-10 08:49] LABS: MONO # 5.3 10^3/uL (0.0-0.8)
[2025-04-10 09:00] LABS: CALCIUM LEVEL 8.0 MG/DL (8.3-10.6); CARBON DIOXIDE LEVEL 22.0 MMOL/L (20-31); CHLORIDE LEVEL 108.0 MMOL/L (98-107); CREATININE FOR GFR 1.99 MG/DL (0.70-1.30); GLOMERULAR FILTRATION RATE 33.3 (>35); POTASSIUM SERUM 3.7 MMOL/L (3.5-5.1); SODIUM LEVEL 141.0 MMOL/L (136-145)
[2025-04-10] MEDS ORDERED: LOPERAMIDE 2 MG CAPLET PO PRN (11:10)
[2025-04-10 12:00] VITALS: BP_SYST 152; BP_SYST 188; BP_DIAS 64; BP_DIAS 86; TEMP 97.7; O2SAT 97
[2025-04-10 19:46] VITALS: BP 150/71; TEMP 97.9; O2SAT 97
[2025-04-10] MEDS: predniSONE 20 MG TAB PO SCH (20:25)
[2025-04-11 04:00] VITALS: BP 152/81; TEMP 97.8; O2SAT 95
[2025-04-11 07:41] VITALS: BP 174/87
[2025-04-11 08:30] VITALS: BP 155/79
[2025-04-11 12:00] VITALS: BP 130/62; TEMP 97.4; O2SAT 96
[2025-04-11 19:56] VITALS: BP 173/79; TEMP 97.9; O2SAT 98
[2025-04-11 19:56] LABS: BASO # 0.1 10^3/uL (0.0-0.2); BASO % 0.3 % (0.0-1.0); EOS # 0.0 10^3/uL (0.0-0.5); EOS % 0.1 % (0.0-3.0); LYMPH # 1.6 10^3/uL (1.5-5.0); LYMPH % 6.3 % (24.0-44.0); MONO # 4.5 10^3/uL (0.0-0.8); MONO % 17.5 % (2.0-8.0); NEUTROPHILS # 12.4 10^3/uL (1.5-8.5); NEUTROPHILS % 48.0 % (36.0-66.0); PLATELET COUNT, AUTOMATED 176 10^3/uL (150-450)
[2025-04-11 20:27] LABS: CALCIUM LEVEL 7.8 MG/DL (8.3-10.6); CARBON DIOXIDE LEVEL 19.0 MMOL/L (20-31); CHLORIDE LEVEL 107.0 MMOL/L (98-107); CREATININE FOR GFR 2.08 MG/DL (0.70-1.30); GLOMERULAR FILTRATION RATE 31.6 (>35); POTASSIUM SERUM 4.5 MMOL/L (3.5-5.1); SODIUM LEVEL 139.0 MMOL/L (136-145)
[2025-04-12 00:11] VITALS: BP 123/75
[2025-04-12 04:00] VITALS: BP 145/68; TEMP 97.7; O2SAT 98
[2025-04-12 06:26] LABS: PLATELET COUNT, AUTOMATED 135 10^3/uL (150-450)
[2025-04-12 06:46] LABS: CALCIUM LEVEL 8.1 MG/DL (8.3-10.6); CARBON DIOXIDE LEVEL 21.0 MMOL/L (20-31); CHLORIDE LEVEL 110.0 MMOL/L (98-107); CREATININE FOR GFR 2.12 MG/DL (0.70-1.30); GLOMERULAR FILTRATION RATE 30.9 (>35); POTASSIUM SERUM 4.2 MMOL/L (3.5-5.1); SODIUM LEVEL 143.0 MMOL/L (136-145)
[2025-04-12 07:24] VITALS: BP 157/90
[2025-04-12 12:00] VITALS: BP 160/74; TEMP 97.6; O2SAT 98
[2025-04-12 20:09] VITALS: BP 161/72; TEMP 97.6; O2SAT 97
[2025-04-13 04:19] VITALS: BP 146/72; TEMP 97.9; O2SAT 97
[2025-04-13 05:59] LABS: PLATELET COUNT, AUTOMATED 115 10^3/uL (150-450)
[2025-04-13 06:27] LABS: CALCIUM LEVEL 8.0 MG/DL (8.3-10.6); CARBON DIOXIDE LEVEL 21.0 MMOL/L (20-31); CHLORIDE LEVEL 110.0 MMOL/L (98-107); CREATININE FOR GFR 2.0 MG/DL (0.70-1.30); GLOMERULAR FILTRATION RATE 33.1 (>35); POTASSIUM SERUM 4.3 MMOL/L (3.5-5.1); SODIUM LEVEL 143.0 MMOL/L (136-145)
[2025-04-13 10:48] LABS: KETONE, URINE AUTO RFX NEGATIVE (NEGATIVE); RBC, URINE AUTO RFX 65 /HPF (0-3); SQUAM EPITHELIAL CELL UR AURFX 0 /HPF (0-6)
[2025-04-13 10:49] LABS: LEUKOCYTE ESTERASE UR AUTO RFX 2+ (NEGATIVE); NITRITE, URINE AUTO RFX POSITIVE (NEGATIVE); WBC, URINE AUTO RFX TNTC /HPF (0-3)
[2025-04-13 12:00] VITALS: BP 146/76; TEMP 97.1; O2SAT 100
[2025-04-13 20:00] VITALS: BP 140/65; TEMP 97.6; O2SAT 98
[2025-04-13] MEDS: traZODone 50 MG TAB PO PRN (20:10)
[2025-04-14 04:00] VITALS: BP 157/71; TEMP 97; O2SAT 97
[2025-04-14 06:25] LABS: PLATELET COUNT, AUTOMATED 106 10^3/uL (150-450)
[2025-04-14 06:50] LABS: CALCIUM LEVEL 8.0 MG/DL (8.3-10.6); CARBON DIOXIDE LEVEL 26.0 MMOL/L (20-31); CHLORIDE LEVEL 108.0 MMOL/L (98-107); CREATININE FOR GFR 2.04 MG/DL (0.70-1.30); GLOMERULAR FILTRATION RATE 32.3 (>35); POTASSIUM SERUM 4.5 MMOL/L (3.5-5.1); SODIUM LEVEL 142.0 MMOL/L (136-145)
[2025-04-14] MEDS ORDERED: PILL CUTTER 1 EACH XX PRN (09:50)
[2025-04-14] MEDS: ONDANSETRON 4MG ORAL DISINTEGRATING TAB PO PRN (11:27)
[2025-04-14 12:00] VITALS: BP 144/64; TEMP 96.6; O2SAT 94
[2025-04-14] MEDS: COLCHICINE 0.6 MG TABLET PO ONE (13:00)
[2025-04-14] MEDS ORDERED: ACET32TAB PO (14:49)
[2025-04-14] MEDS ORDERED: LEVO125T4 PO (14:55)
[2025-04-14] MEDS ORDERED: ELIQ2.5T PO (14:55)
[2025-04-14] MEDS ORDERED: PREG50CA87 PO (14:55)
[2025-04-14] MEDS ORDERED: AMLO2.5T3 PO (14:55)
[2025-04-14] MEDS ORDERED: ULOR80TA PO (14:55)
[2025-04-14] MEDS ORDERED: AMLO1TAB24 PO (14:55)
[2025-04-14 15:43] LABS: CALCIUM LEVEL 7.9 MG/DL (8.3-10.6); CARBON DIOXIDE LEVEL 24.0 MMOL/L (20-31); CHLORIDE LEVEL 106.0 MMOL/L (98-107); CREATININE FOR GFR 2.01 MG/DL (0.70-1.30); GLOMERULAR FILTRATION RATE 32.9 (>35); POTASSIUM SERUM 5.0 MMOL/L (3.5-5.1); SODIUM LEVEL 139.0 MMOL/L (136-145)
[2025-04-14 20:00] VITALS: BP 151/67; TEMP 96.8; O2SAT 95
[2025-04-14 22:14] VITALS: BP 121/59
[2025-04-15 04:00] VITALS: BP 138/64; TEMP 97.3; O2SAT 96
[2025-04-15 05:56] LABS: BASO # 0.1 10^3/uL (0.0-0.2); BASO % 0.4 % (0.0-1.0); EOS # 0.0 10^3/uL (0.0-0.5); EOS % 0.1 % (0.0-3.0); LYMPH # 1.2 10^3/uL (1.5-5.0); LYMPH % 7.4 % (24.0-44.0); MONO % 26.4 % (2.0-8.0); NEUTROPHILS # 7.1 10^3/uL (1.5-8.5); NEUTROPHILS % 44.6 % (36.0-66.0)
[2025-04-15 06:00] LABS: MONO # 4.2 10^3/uL (0.0-0.8)
[2025-04-15 06:01] LABS: PLATELET COUNT, AUTOMATED 88 10^3/uL (150-450)
[2025-04-15 06:26] LABS: CALCIUM LEVEL 8.0 MG/DL (8.3-10.6); CARBON DIOXIDE LEVEL 24.0 MMOL/L (20-31); CHLORIDE LEVEL 109.0 MMOL/L (98-107); CREATININE FOR GFR 2.01 MG/DL (0.70-1.30); GLOMERULAR FILTRATION RATE 32.9 (>35); POTASSIUM SERUM 5.0 MMOL/L (3.5-5.1); SODIUM LEVEL 143.0 MMOL/L (136-145)
[2025-04-15 08:33] VITALS: BP 140/64
[2025-04-15] MEDS: COLCHICINE 0.6 MG TABLET PO SCH (08:34)
[2025-04-15 08:36] VITALS: BP 140/64
[2025-04-16] MEDS ORDERED: LEVO1TAB38 PO (09:09)
== END 2025-04-15 10:08 | disposition home health service (06) | DRG 57 ==
LOC: M PM&R 14:55
PROVIDERS: ADMIT Physical Medicine & Rehabilitation; ATTEND Physical Medicine & Rehabilitation
DX: I69.392 Facial weakness following cerebral infarction (principal); D75.81 Myelofibrosis; I16.1 Hypertensive emergency; N39.0 Urinary tract infection, site not specified; I69.328 Other speech and language deficits following cerebral infarction; I69.398 Other sequelae of cerebral infarction; E83.110 Hereditary hemochromatosis; R27.9 Unspecified lack of coordination; D64.9 Anemia, unspecified; N18.30 Chronic kidney disease, stage 3 unspecified; E78.5 Hyperlipidemia, unspecified; I12.9 Hypertensive chronic kidney disease with stage 1 through stage 4 chronic kidney disease, or unspecified chronic kidney disease; M19.90 Unspecified osteoarthritis, unspecified site; R40.0 Somnolence; I65.22 Occlusion and stenosis of left carotid artery; I35.1 Nonrheumatic aortic (valve) insufficiency; E03.9 Hypothyroidism, unspecified; G62.9 Polyneuropathy, unspecified; M10.072 Idiopathic gout, left ankle and foot; M10.071 Idiopathic gout, right ankle and foot; D72.829 Elevated white blood cell count, unspecified; M21.612 Bunion of left foot; Z74.09 Other reduced mobility; Z74.1 Need for assistance with personal care; Z79.82 Long term (current) use of aspirin; Z79.890 Hormone replacement therapy; Z79.52 Long term (current) use of systemic steroids; Z79.899 Other long term (current) drug therapy; Z90.49 Acquired absence of other specified parts of digestive tract

== ENCOUNTER → 2025-05-12 | Outpatient (CLI) | payer MEDICARE ==
[~2025-05-12] MED LIST changes: +ACET32TAB PO; +ATOR80TA59 PO; +CARV3.12 PO; +CEFD300CAP PO; +CLOP75TA2 PO; +COLC0.6T53; +ELIQ2.5T PO; +FURO20TA2; +LEVO1TAB38 PO; +LISI10TA22; +MAGN400T33 PO; +PRED20TA PO; +PREG50CA87 PO; +SODI325T9 PO; +TRAM50TA2
== END ==
LOC: M RAD 12:04
PROVIDERS: ATTEND Nurse Practitioner Family
DX: N17.9 Acute kidney failure, unspecified (principal); R33.9 Retention of urine, unspecified